=== PATIENT | female | born 1950 | race Caucasian/White ===

== ENCOUNTER 2022-11-05 11:59 | Emergency (ER) | payer MEDICARE, OTHER, SELFPAY ==
[2022-11-05 12:21] VITALS: BP 140/83; PULSE 92; RESP 18; TEMP 36.8; O2SAT 95; BMI 29.0
[2022-11-05 12:40] LABS: MANUAL DIFF FLAG NO
[2022-11-05 12:47] LABS: Basophils Percent Auto 0.7 % (0-2); Eosinophils Absolute Auto 0.1 X10*3/uL (0.0-0.4); Eosinophils Percent Auto 1.2 % (0-4); Hematocrit 37.3 % (37.0-47.0); Hemoglobin 12.7 g/dl (12.0-16.0); Imm Gran Abs Auto 0.02 X10*3/uL (0.00-0.03); Imm Gran Pct Auto 0.4 % (0.0-0.4); Lymphocytes Absolute Auto 1.6 X10*3/uL (1.2-4.9); Lymphocytes Percent Auto 27.4 % (20-40); Mean Corpuscular Hemoglobin 29.8 pg (27.0-33.0); Mean Corpuscular Volume 87.6 fL (80.0-98.0); Mean Platelet Volume 10.5 fL (9.4-12.3); Monocytes Absolute Auto 0.4 X10*3/uL (0.1-1.2); Monocytes Percent Auto 7.3 % (2-11); Neutrophils Absolute Auto 3.6 x10*3/uL (2.0-8.3); Platelet Count 261 X10*3/uL (160-400); Red Blood Count 4.26 X10*6/uL (4.20-5.50); Red Cell Distribution Width 12.2 % (11.0-16.0); White Blood Count 5.7 X10*3/uL (4.8-10.8)
[2022-11-05 13:01] LABS: Alanine Aminotransferase 25 U/L (0-31); Albumin Level 4.7 g/dL (3.5-5.0); Alkaline Phosphatase 67 U/L (39-117); Anion Gap 15 (12-20); Aspartate Amino Transferase 34 U/L (5-31); Bilirubin Total 0.6 mg/dL (0.0-1.0); Blood Urea Nitrogen 9 mg/dL (9-16); Calcium 9.5 mg/dL (8.4-10.2); Carbon Dioxide 28 mmol/L (22-29); Chloride 104 mmol/L (96-108); Estimated Glomerular Filt Rate > 60; Glucose Random 131 mg/dL (60-115); Potassium 3.7 mmol/L (3.3-5.1); Sodium 143 mmol/L (135-145); Total Protein 7.1 g/dL (6.5-8.0)
--- NOTE | 2022-11-05 13:26 | ED_ITS ---
HPI - GI Bleed General Chief complaint: GI Bleed Stated complaint: blood in stool Time Seen by Provider: 11/05/22 13:09 History of Present Illness HPI Narrative: Patient is a 71-year-old female with a history having a colonoscopy done approximately 1 year ago. Grossly was negative there was no mass. Presented today with having bright red blood per rectum 2 days ago. Patient denies any dizziness. No chest pain or shortness breath no diaphoresis. Patient is not on any blood thinners. Today the stool is actually became normal again. Came to the ED because she could not get an appointment with her GI specialist. Denies any history of cancer. No systemic complaints. Patient is unsure she has a history of diverticulosis in the past she has a history of diabetes, hypertens ion, high cholesterol. Related Data Allergies Allergy/AdvReac Type Severity Reaction Status Date / Time codeine AdvReac Gastrointestinal Verified 11/05/22 12:20 Upset Review of Systems Review of Systems: Positive bright red blood per rectum PMFSH Past Medical History Attestation statement: The following information was validated with the patient. Social History Social History (System 12/04/20 @ 15:00 by Zainab Naqvi) Advance Directives: No Physical Exam Vital Signs: Vital Signs: Last Vital Signs Temp 98.2 F 11/05/22 12:21 Pulse 92 11/05/22 12:21 Resp 18 11/05/22 12:21 BP 134/79 11/05/22 13:40 Pulse Ox 95 11/05/22 12:21 O2 Del Method 11/05/22 12:21 BMI result Body Mass Index 29.0 Appearance: Alert. Oriented X3. No acute distress. Eyes: Pupils equal, round and reactive to light. ENT: Pharynx normal. Neck: Normal inspection. Neck supple. No lymph nodes noted. No crepitus CVS: Normal heart rate and rhythm. Pulses normal. Normal S1 and S2 Respiratory: No respiratory distress. Breath sounds normal. No Wheezing. No rales Abdomen: Soft and nontender. No rigidity. No distention. good BS x4 Rectal exam done with nurse Huizar present. Only mucus was found Skin: Skin warm and dry. Normal skin color. Normal skin turgor. Extremities: No lower extremity edema. Neurovascular intact to all extremities. No Lacerations. No Rash Neuro: Oriented X 3. No motor deficit. No sensory deficit. Moving all extermities. No slurred speech Medical Decision Making Medical Decision Making [facility] Narrative: Patient well-appearing no acute distress. Vital signs are normal. No dizziness no nausea no vomiting positive bright red blood per rectum multiple episodes no with no formed stool in the last 2 days. Now having formed stool brown again. Question secondary to AV malformation versus diverticulosis. Patient has no abdominal pain. Had a colonoscopy done about a year ago. Less likely this is secondary to malignancy. Patient's hemoglobin is 12. She is well-appearing she has no dizziness her abdominal exam is soft nontender her rectal exam showed no large hemorrhoids no fissures. Patient is stable condition. Will get o rthostatics. Stool was sent for Hemoccult. Currently in stable condition Patient not orthostatic. Rectal exam was actually heme-negative. Well- appearing. Will have patient follow-up on an outpatient basis with her GI specialist. He is in stable condition. Differential Diagnosis Av malformation, diverticulosis, colon cancer Lab Data [facility] Lab Attestation statement: I reviewed the patient's lab results. 11/05/22 12:31 11/05/22 12:31 Labs: Lab Results 11/05/22 11/05/22 11/05/22 Range/Units 12:31 12:31 13:23 WBC 5.7 (4.8-10.8) X10*3/uL RBC 4.26 (4.20-5.50) X10*6/uL Hgb 12.7 (12.0-16.0) g/dl Hct 37.3 (37.0-47.0) % MCV 87.6 (80.0-98.0) fL MCH 29.8 (27.0-33.0) pg MCHC 34.0 (31.0-35.0) g/dl RDW 12.2 (11.0-16.0) % Plt Count 261 (160-400) X10*3/uL MPV 10.5 (9.4-12.3) fL Immature Gran % (Auto) 0.4 (0.0-0.4) % Neut % (Auto) 63.0 (45-73) % Lymph % (Auto) 27.4 (20-40) % [place] % (Auto) 7.3 (2-11) % Eos % (Auto) 1.2 (0-4) % Baso % (Auto) 0.7 (0-2) % Lymph # (Auto) 1.6 (1.2-4.9) X10*3/uL [place] # (Auto) 0.4 (0.1-1.2) X10*3/uL Eos # (Auto) 0.1 (0.0-0.4) X10*3/uL Baso # (Auto) 0.0 (0.0-0.2) X10*3/uL Abs Immat Gran (auto) 0.02 (0.00-0.03) X10*3/uL Absolute Neuts (auto) 3.6 (2.0-8.3) x10*3/uL Absolute Nucleated RBC 0.000 (0.0-0.012) X10*3/uL Nucleated RBC % (auto) 0.0 (0.0-0.2) /100WBC Sodium 143 (135-145) mmol/L Potassium 3.7 (3.3-5.1) mmol/L Chloride 104 (96-108) mmol/L Carbon Dioxide 28 (22-29) mmol/L Anion Gap 15 (12-20) BUN 9 (9-16) mg/dL Creatinine 0.92 (0.5-1.4) mg/dL Estim Creat Clear Calc 57.0 Estimated GFR > 60 Random Glucose 131 H (60-115) mg/dL Calcium 9.5 (8.4-10.2) mg/dL Total Bilirubin 0.6 (0.0-1.0) mg/dL AST 34 H (5-31) U/L ALT 25 (0-31) U/L Alkaline Phosphatase 67 (39-117) U/L Total Protein 7.1 (6.5-8.0) g/dL Albumin 4.7 (3.5-5.0) g/dL Stool Occult Blood NEGATIVE (NEGATIVE) Independent Historian Clinical information obtained from an independent historian. History obtained from or confirmed by: Parent Chronic Conditions Patient?s care impacted by: Diabetes and Hypertension Discharge Plan Discharge Clinical Impression: GI (gastrointestinal bleed) Instructions: Rectal Bleeding (ED) Referrals: Dino Rhoades MD [Primary Care Provider] - (Please follow-up with your GI doctor in the next day or 2. )
[2022-11-05 13:28] LABS: OBS Int Ctl Valid YES; OBS1 NEGATIVE (NEGATIVE)
[2022-11-05 13:39] VITALS: BP 134/69
[2022-11-05 13:40] VITALS: BP 134/79; BP 139/80
== END 2022-11-05 14:31 | disposition home or self-care (01) ==
PROVIDERS: Emergency Provider Emergency Medicine Emergency Medical Services; PCP Internal Medicine
DX: K92.2 Gastrointestinal hemorrhage, unspecified (principal); E11.9 Type 2 diabetes mellitus without complications; I10 Essential (primary) hypertension; E78.5 Hyperlipidemia, unspecified
CPT/HCPCS: 36415; 80053; 82272; 85025; 99283